=== PATIENT | female | born 1945 | race Caucasian/White ===

== ENCOUNTER 2016-10-22 22:15 | Emergency (ER) | payer MEDICARE, OTHER ==
[2016-10-22] MEDS ORDERED: Sodium Chloride 0.9% 1000 ML 1,000 ML ONE (22:39)
[2016-10-22] MEDS ORDERED: TYLENOL 325 MG PO STA (22:41)
[2016-10-22] MEDS ORDERED: Sodium Chloride 0.9% 1000 ML 1,000 ML IV STA (22:41)
[2016-10-22] MEDS ORDERED: Rocephin 1000 MG INJ IV STA (22:41)
[2016-10-22] MEDS ORDERED: TYLENOL EXTRA STRENGTH 500 MG PO ONE (22:45)
--- NOTE | 2016-10-22 22:45 | ERPHSYRPT ---
- History of Present Illness Time Seen by Provider: 10/22/16 22:43 Source: patient, family Exam Limitations: no limitations Patient Subjective Stated Complaint: pt spouse states that police captain senior he witnessed the patient have difficulty getting up from her chair. states that she was mumbling and had garbled speech. pt reports chills and was shivering this evening. spouse reports giving pt 2 81 mg asa, pt does not recall this event. Triage Nursing Assessment: pt is aox3, arrived per ems, pt resps are easy and nonlabored, skin is flushed and hot to the touch. pulses are strong and equal, lung sounds are clear throughout ant and posterior. Physician History: pt spouse states that police captain senior he witnessed the patient have difficulty getting up from her chair. states that she was mumbling and had garbled speech. pt reports chills and was shivering this evening. spouse reports giving pt 2 81 mg asa, pt does not recall this event. Timing/Duration: today Fever Severity: moderate Fever Therapy LEGAL ADMINISTRATIVE SECRETARY: aspirin Associated Symptoms: confusion, weakness International travel in last 2 weeks: No Allergies/Adverse Reactions: No Known Drug Allergies Allergy (Verified 10/22/16 22:35) Home Medications: Ascorbic Acid 500 mg [Vitamin C 500 MG] 500 mg PO DAILY 07/13/14 [History] Aspirin [Aspirin EC] 81 mg PO DAILY 07/13/14 [History] Calcium Carb & Citrate/Vit D3 [Calcium + Vitamin D3 Caplet] 1 each PO DAILY [History] Folic Acid 1 mg PO DAILY 07/13/14 [History] Liraglutide [Victoza 2-Rod] 1.8 mg SQ DAILY 07/13/14 [History] Metformin HCl 850 mg [Glucophage 850 MG] 850 mg PO BID 07/13/14 [History] Multivitamin W-Minerals/Lutein [Centrum Silver Tablet] 1 each PO DAILY 07/13/14 [History] Niacin 250 mg PO DAILY 07/13/14 [History] [place]-3/Dha/Epa/Fish Oil [Fish Oil Dr 500 mg Softgel] 500 mg PO DAILY 07/13/14 [ History] Rosuvastatin Calcium [Crestor] 10 mg PO DAILY 07/13/14 [History] Thiamine HCl 100 mg [Vitamin B-1 100 mg] 100 mg PO DAILY 07/13/14 [History ] Vitamin E 400 Units [Vitamin E 400 UNIT SOFTGEL] 400 unit PO DAILY [History] Hx Tetanus, Diphtheria Vaccination/Date Given: Yes Hx Influenza Vaccination/Date Given: No Hx Pneumococcal Vaccination/Date Given: No Immunizations Up to Date: Yes - Review of Systems Constitutional: Fever, Chills Eyes: No Symptoms Ears, Nose, & Throat: No Symptoms Respiratory: No Cough, No Dyspnea Cardiac: No Chest Pain, No Edema, No Syncope Abdominal/Gastrointestinal: No Abdominal Pain, No Nausea, No Vomiting, No Diarrhea Genitourinary Symptoms: No Dysuria Musculoskeletal: Back Pain, No Neck Pain Skin: No Rash Neurological: No Dizziness, No Focal Weakness, No Sensory Changes Psychological: No Symptoms Endocrine: No Symptoms All Other Systems: Reviewed and Negative - Past Medical History Pertinent Past Medical History: Yes Neurological History: No Pertinent History ENT History: No Pertinent History Cardiac History: No Pertinent History Respiratory History: No Pertinent History Endocrine Medical History: Diabetes Type II Musculoskeletal History: Arthritis, Other GI Medical History: No Pertinent History History: No Pertinent History Psycho-Social History: No Pertinent History Female Reproductive Disorders: Other Other Medical History: bulging discs - Past Surgical History Past Surgical History: Yes Neuro Surgical History: No Pertinent History Cardiac: No Pertinent History Respiratory: No Pertinent History Gastrointestinal: Appendectomy, Cholecystectomy Genitourinary: No Pertinent History Musculoskeletal: Joint Replacement Female Surgical History: No Pertinent History Other Surgical History: breat biopsy, tumor removed from arm; partial right knee replacement. - Social History Smoking Status: Never smoker Exposure to second hand smoke: No Drug Use: none Patient Lives Alone: No - Nursing Vital Signs Nursing Vital Signs: Initial Vital Signs Temperature 100.3 F Temperature Source Oral Pulse Rate 100 Respiratory Rate 22 Blood Pressure [] 155/65 Pain Intensity 0 - Physical Exam General Appearance: no apparent distress, alert Eye Exam: PERRL/EOMI ENT Exam: normal ENT inspection, No pharyngeal erythema, No tonsillar exudate Neck Exam: supple, full range of motion, No meningismus Respiratory Exam: normal breath sounds, lungs clear, no respiratory distress Cardiovascular/Chest Exam: normal heart sounds, regular rate/rhythm, No murmur, No edema Gastrointestinal/Abdominal Exam: soft, non tender, no distention Extremity Exam: non-tender, normal range of motion, normal inspection, normal capillary refill Neurologic Exam: alert, oriented x 3, cooperative, clinical trial head II-XII nml as tested, normal mood/affect, sensation nml, No motor deficits Skin Exam: normal color, warm, dry, No rash SpO2: 96 Oxygen Delivery: Room Air - Course Nursing assessment & vital signs reviewed: Yes - Radiology Exams Chest X-ray Interpretation: Reviewed by me Ordered Tests: Active Orders 24 hr Category Date Time Status EKG-ER Only STAT Care 10/22/16 22:41 Active IV Insertion STAT Care 10/22/16 22:41 Active CHEST 2 VIEWS (PA AND LAT) Stat Exams 10/22/16 22:42 Taken BLOOD CULTURE Stat Lab 10/22/16 23:05 Received CBC W DIFF Stat Lab 10/22/16 22:55 Completed CMP Stat Lab 10/22/16 22:55 Completed CULTURE,URINE Stat Lab 10/22/16 22:42 Ordered Lactic Acid Stat Lab 10/22/16 22:55 Completed Manual Differential NC Stat Lab 10/22/16 22:55 Completed UA W/ MICROSCOPIC Stat Lab 10/22/16 23:15 Completed Medication Summary Generic Name Dose Route Start Last Admin Trade Name Freq PRN Reason Stop Dose Admin Ceftriaxone Sodium/Dextrose 1 g in 50 mls @ 100 mls/hr 10/22/16 23:33 23:39 Rocephin 1 Gm-D5w 50 Ml Bag IV 10/23/16 00:02 100 mls/hr STAT ONE Administration Discontinued Medications Generic Name Dose Route Start Last Admin Trade Name Freq PRN Reason Stop Dose Admin Acetaminophen 650 mg 10/22/16 22:41 10/22/16 22:53 Tylenol 325 Mg PO 10/22/16 22:42 Not Given STAT STA Acetaminophen 1,000 mg 10/22/16 22:45 10/22/16 22:53 Tylenol Extra Strength 500 Mg PO 10/22/16 22:46 1,000 mg STAT ONE Administration Acetaminophen Confirm 10/22/16 22:50 Tylenol Extra Strength 500 Mg Administered 10/22/16 22:51 Dose 1,000 mg .ROUTE .STK-MED ONE Sodium Chloride Confirm 10/22/16 22:39 Sodium Chloride 0.9% 1000 Ml Administered 10/22/16 22:40 Dose 1,000 mls @ ud .ROUTE .STK-MED ONE Sodium Chloride 1,000 mls @ 999 mls/hr 10/22/16 22:41 10/22/16 22:53 Sodium Chloride 0.9% 1000 Ml IV 10/22/16 23:41 999 mls/hr .Q1H1M STA Administration Ceftriaxone Sodium/Dextrose Confirm 10/22/16 23:35 Rocephin 1 Gm-D5w 50 Ml Bag Administered 10/22/16 23:36 Dose 1 g in 50 mls @ ud IV .STK-MED ONE Lab/Rad Data: Laboratory Result Diagrams 10/22/16 22:55 10/22/16 22:55 Laboratory Results 10/22/16 10/22/16 10/22/16 Range/Units 23:15 22:55 22:55 WBC (4.0-10.5) K/mm3 RBC (4.1-5.4) M/mm3 Hgb (12.0-16.0) gm/dl Hct (35-47) % MCV (78-100) fl MCH (26-32) pg MCHC (32-36) g/dl RDW (11.5-14.0) % Plt Count (150-450) K/mm3 MPV (6-9.5) fl Sodium 138 (136-145) mEq/L Potassium 3.2 L (3.5-5.1) mEq/L Chloride 101 (98-107) mEq/L Carbon Dioxide 24.8 (21-32) mEq/L Anion Gap 15.5 H (5-15) MEQ/L BUN 16 (9-20) mg/dL Creatinine 0.84 (0.55-1.30) mg/dl Estimated GFR > 60 ML/MIN Glucose 160 H (70-110) MG/DL Lactic Acid 1.5 (0.4-2.0) Calcium 8.6 (8.5-10.1) mg/dL Total Bilirubin 1.30 H (0.2-1.0) mg/dL AST 24 (15-37) U/L ALT 25 (12-78) U/L Alkaline Phosphatase 47 (46-116) U/L Serum Total Protein 6.6 (6.4-8.2) gm/dL Albumin 3.4 (3.4-5.0) g/dL Ur Collection Type CLEAN CATCH Urine Color YELLOW (YELLOW) Urine Appearance CLEAR (CLEAR) Urine pH 7.0 (5-6) Ur Specific [place] 1.005 (1.005-1.025) Urine Protein 30 (Negative) Urine Ketones SMALL (NEGATIVE) Urine Blood TRACE NON-HEM (0-5) Kane/ul Urine Nitrite NEGATIVE (NEGATIVE) Urine Bilirubin NEGATIVE (NEGATIVE) Urine Urobilinogen NORMAL (0-1) mg/dL Ur Leukocyte Esterase 1+ (NEGATIVE) Urine Microscopic RBC 2-5 (0-2) /HPF Urine Microscopic WBC 15-25 (0-5) /HPF Ur Epithelial Cells FEW (FEW) /HPF Urine Bacteria FEW (NEGATIVE) /HPF Urine Glucose NEGATIVE (NEGATIVE) mg/dL Specimen Received 10/22/16 2317 10/22/16 Range/Units 22:55 WBC 12.0 H (4.0-10.5) K/mm3 RBC 4.15 (4.1-5.4) M/mm3 Hgb 11.8 L (12.0-16.0) gm/dl Hct 35.6 (35-47) % MCV 85.8 (78-100) fl MCH 28.4 (26-32) pg MCHC 33.1 (32-36) g/dl RDW 13.8 (11.5-14.0) % Plt Count 143 L (150-450) K/mm3 MPV 11.3 H (6-9.5) fl Sodium (136-145) mEq/L Potassium (3.5-5.1) mEq/L Chloride (98-107) mEq/L Carbon Dioxide (21-32) mEq/L Anion Gap (5-15) MEQ/L BUN (9-20) mg/dL Creatinine (0.55-1.30) mg/dl Estimated GFR ML/MIN Glucose (70-110) MG/DL Lactic Acid (0.4-2.0) Calcium (8.5-10.1) mg/dL Total Bilirubin (0.2-1.0) mg/dL AST (15-37) U/L ALT (12-78) U/L Alkaline Phosphatase (46-116) U/L Serum Total Protein (6.4-8.2) gm/dL Albumin (3.4-5.0) g/dL Ur Collection Type Urine Color (YELLOW) Urine Appearance (CLEAR) Urine pH (5-6) Ur Specific [place] (1.005-1.025) Urine Protein (Negative) Urine Ketones (NEGATIVE) Urine Blood (0-5) Kane/ul Urine Nitrite (NEGATIVE) Urine Bilirubin (NEGATIVE) Urine Urobilinogen (0-1) mg/dL Ur Leukocyte Esterase (NEGATIVE) Urine Microscopic RBC (0-2) /HPF Urine Microscopic WBC (0-5) /HPF Ur Epithelial Cells (FEW) /HPF Urine Bacteria (NEGATIVE) /HPF Urine Glucose (NEGATIVE) mg/dL Specimen Received - Progress Progress: improved Counseled pt/family regarding: lab results, diagnosis, need for follow-up, rad results - Departure Time of Disposition: 23:50 Departure Disposition: Home Clinical Impression: UTI (lower urinary tract infection) Condition: Stable Critical Care Time: Yes Critical Care Time(excluding separately billable procedures): 30-74 minutes Referrals: VIDHI LEONG MD [Primary Care Provider] - Instructions: Urinary Tract Infection (UTI) Additional Instructions: URINARY TRACT INFECTION 1. You will need to drink plenty of fluids in order to keep your urinary system flushed. These fluids should mainly consist of water and juices. 2. Take medications as directed. You need to completely finish any antibiotic prescription given. 3. Try to avoid coffee, tea, alcohol, and seasoned foods as they may cause bladder irritation. 4. If signs and symptoms persist after 3-4 days, you will need to follow up with your family physician. 5. Female Patients: A. Avoid intercourse for 3-4 days. B. Empty bladder before and after intercourse to reduce risk of re- infection. C. After emptying bladder, wipe from front to back to reduce the risk of re- infection. Please follow the instructions given to you. Please take your medication as prescribed if given. If symptoms recur or get worse, come back to the emergency room if you cannot reach your primary care physician, or call your primary care physician for an appointment. Again if your symptoms get worse, come back to the emergency room. Thanks for visiting emergency room, and let us take care of you. Prescriptions: Ciprofloxacin [Cipro 500 MG] 500 mg PO BIDAC #20 tablet
[2016-10-22] MEDS ORDERED: TYLENOL EXTRA STRENGTH 500 MG ONE (22:50)
[2016-10-22 23:12] LABS: Mean Cell Volume 85.8 fl (78-100); Mean Corpuscular Hemoglobin 28.4 pg (26-32); Mean Platelet Volume 11.3 fl (6-9.5); Platelet Count 143 K/mm3 (150-450); Red Blood Count 4.15 M/mm3 (4.1-5.4); Red Cell Distribution Width 13.8 % (11.5-14.0)
[2016-10-22] MEDS ORDERED: ROCEPHIN 1 Gm-D5w 50 ml Bag** 1 G/50 ML IVPB IV ONE ×2 (23:33→23:35)
[2016-10-22 23:38] VITALS: O2SAT 96
[2016-10-22 23:38] LABS: Collection Type CLEAN CATCH; Glucose NEGATIVE (NEGATIVE); Leukocyte Esterase 1+ (NEGATIVE)
[2016-10-22 23:39] LABS: Bilirubin NEGATIVE (NEGATIVE); Blood TRACE NON-HEM Ery/ul (0-5); COMPLETE URINE MICROSCOPIC? YES
[2016-10-22 23:40] LABS: Bacteria FEW /HPF (NEGATIVE); Epithelial Cells FEW /HPF (FEW); WBC 15-25 /HPF (0-5)
[2016-10-22 23:43] LABS: ALBUMIN 3.4 g/dL (3.4-5.0); ALKALINE PHOSPHATASE 47 U/L (46-116); ANION GAP 15.5 MEQ/L (5-15); BLOOD UREA NITROGEN 16 mg/dL (9-20); CHLORIDE 101 mEq/L (98-107); Carbon Dioxide 24.8 mEq/L (21-32); Glucose 160 MG/DL (70-110); Potassium 3.2 mEq/L (3.5-5.1); SGOT/AST 24 U/L (15-37); SGPT/ALT 25 U/L (12-78); SODIUM 138 mEq/L (136-145); Total Protein 6.6 gm/dL (6.4-8.2)
[2016-10-23 00:36] LABS: BAND 1 % (0.0-2.0); Platelet Estimate NORMAL (NORMAL); Total Cells Counted 100
[2016-10-23 00:39] VITALS: BP 151/92; PULSE 70
--- NOTE | 2016-10-23 06:40 | XRAY ---
Indication: Fever, chills, and confusion. Comparison: None PA/lateral chest demonstrates normal heart and lungs with incidental scattered calcified granulomas. Bony thorax intact with mild spinal degenerative changes.
== END 2016-10-23 00:39 | disposition home or self-care (01) ==
LOC: ED 22:15
DX: N39.0 Urinary tract infection, site not specified (principal); R41.0 Disorientation, unspecified; R53.1 Weakness; R50.9 Fever, unspecified; E11.9 Type 2 diabetes mellitus without complications; Z79.84 Long term (current) use of oral hypoglycemic drugs; Z79.899 Other long term (current) drug therapy
CPT/HCPCS: 36000; 36415; 71020; 80053; 81000; 83605; 85025; 87040; 87077; 87086; 87186; 93005; 96360; 96365; 99284; J0696; A9270-GY

== ENCOUNTER 2020-02-27 19:18 | Emergency (ER) | payer MEDICARE, OTHER ==
[2020-02-27] MEDS ORDERED: Sodium Chloride 0.9% 1000 ML 1,000 ML IV STA (19:22)
[2020-02-27 19:31] VITALS: O2SAT 97
[2020-02-27] MEDS ORDERED: Sodium Chloride 0.9% 1000 ML 1,000 ML ONE (19:35)
[2020-02-27 19:53] LABS: ALBUMIN 4.2 g/dL (3.5-5.0); ANION GAP 12.1 MEQ/L (5-15); BILIRUBIN,TOTAL 1.4 mg/dL (0.2-1.3); Calcium 9.3 mg/dL (8.4-10.2); Creatinine 1 0.97 mg/dL (0.52-1.04); EST GLOMERULAR FILTRATION RATE 59.3 ML/MIN; MAGNESIUM 1.6 mg/dL (1.6-2.3); Potassium 3.8 mmol/L (3.5-5.1); Total Protein 7.2 g/dL (6.3-8.2)
[2020-02-27 19:57] LABS: Hematocrit 36.2 % (35-47); Hemoglobin 11.9 gm/dl (12.0-16.0); Mean Cell Volume 89.4 fl (78-100); Mean Corpuscular Hemoglobin 29.4 pg (26-32); Mean Corpuscular Hgb Concent. 32.9 g/dl (32-36); Mean Platelet Volume 11.8 fl (7.5-11.0); Platelet Count 138 K/mm3 (150-450); Red Blood Count 4.05 M/mm3 (4.1-5.4); Red Cell Distribution Width 14.4 % (11.5-14.0); White Blood Count 15.4 K/mm3 (4.0-10.5)
[2020-02-27 20:00] LABS: Appearance SLIGHTLY CLOUDY (CLEAR); Bilirubin NEGATIVE (NEGATIVE); Blood NEGATIVE Ery/ul (0-5); Epithelial Cells RARE /HPF (FEW); Glucose 50 mg/dL (NEGATIVE); Ketones TRACE (NEGATIVE); Leukocyte Esterase MODERATE (NEGATIVE); Mucus SLIGHT /HPF (NEGATIVE); Nitrite NEGATIVE (NEGATIVE); Non-Squamous Epithelial Cells RARE /HPF (FEW); Protein,Urine Dip NEGATIVE (Negative); Specific Gravity 1.017 (1.005-1.025); Urobilinogen 2 mg/dL (0-1)
--- NOTE | 2020-02-27 20:33 | ERPHSYRPT ---
- History of Present Illness Source: patient, family, EMS Exam Limitations: no limitations Patient Subjective Stated Complaint: Patient states " I was sitting at the table and before I realized it I was sliding down to the floor and landed on my butt". I started having sharp pain in my lower back". Triage Nursing Assessment: Patient arrived to ER via ambulance. Patient A/O times 4. Patient pleasant. Lungs clear bilateral A/P throughout. Patient denies SOB. Patient denies chest pain. No S/S respiratory distress. + BS times 4 quads. ABD soft round non-distended. Patient denies pain or discomfort upon palpitation. Upon visual inspection to back no bruising or edema noted. Slight redness noted. Cap refill < 3 seconds. 1+ pitting edema noted to bilateral lower extremties. + pedal and radial pulses noted to all extremities. Patient denies losing LOC. Patient stated she did hit head on a piece of furniture that was behind her but denies headache or any pain or discomfort to head/neck. ROM WNL. Physician History: Patient is 74-year-old female with diabetes who presents status post fall. Brought in by ambulance. Patient apparently was sitting at a table but at the edge of her seat and started sliding down off the seat and ended up on the table. On the way down she did hit the back of her head on the chair edge. Denies any dizziness or weakness prior to sliding down. She blames it on having sat too close to the edge of her chair. Ever patient states that she has been feeling dizzy over the last week or 2. Patient denies any chest pain, shortness of breath, URI or GI symptoms. Patient also denies fever. Patient states that she did not lose consciousness. She does mention of having some pain in her lower back and neck. Been states that patient has been on the ground for about an hour before he got there. Patient states that she felt too weak to get up on her own but was fully aware. Occurred: just prior to arrival Reason for Fall: slipped Injuries/Pain Location: head, neck, back Loss of Consciousness: no loss of consciousness Quality: aching Severity of Pain-Max: moderate Severity of Pain-Current: moderate Modifying Factors: Improves With: nothing Allergies/Adverse Reactions: No Known Drug Allergies Allergy (Verified 02/27/20 19:20) Home Medications: Ascorbic Acid 500 mg [Vitamin C 500 MG] 500 mg PO DAILY 07/13/14 [History] Calcium Carb & Citrate/Vit D3 [Calcium + Vitamin D3 Caplet] 1 each PO DAILY 07/13/14 [History] Liraglutide [Victoza 2-Rod] 1.8 mg SQ DAILY 07/13/14 [History] Metformin HCl 850 mg [Glucophage 850 MG] 850 mg PO BID 07/13/14 [History] Multivitamin W-Minerals/Lutein [Centrum Silver Tablet] 1 each PO DAILY 07/13/14 [History] [place]-3/Dha/Epa/Fish Oil [Fish Oil Dr 500 mg Softgel] 500 mg PO DAILY 07/13/14 [History] Rosuvastatin Calcium [Crestor] 10 mg PO DAILY 07/13/14 [History] Gabapentin 300 mg PO TID 02/27/20 [History] Raloxifene HCl 60 mg PO DAILY 02/27/20 [History] Hx Tetanus, Diphtheria Vaccination/Date Given: Yes Hx Influenza Vaccination/Date Given: Yes Hx Pneumococcal Vaccination/Date Given: Yes Immunizations Up to Date: Yes Travel Risk - International Travel Have you traveled outside of the country in past 3 weeks: No - Coronavirus Screening Are you exhibiting any of the following symptoms?: No Close contact with a COVID-19 positive Pt in past 14-21 Days: No - Review of Systems Constitutional: No Fever, No Chills Eyes: No Symptoms Ears, Nose, & Throat: No Symptoms Respiratory: No Cough, No Dyspnea Cardiac: No Chest Pain, No Edema, No Syncope Abdominal/Gastrointestinal: No Abdominal Pain, No Nausea, No Vomiting, No Diarrhea Genitourinary Symptoms: No Dysuria Musculoskeletal: Back Pain, Neck Pain Skin: No Rash Neurological: Dizziness, No Focal Weakness, No Sensory Changes Psychological: No Symptoms Endocrine: No Symptoms All Other Systems: Reviewed and Negative - Past Medical History Pertinent Past Medical History: Yes Neurological History: Peripheral Neuropathy ENT History: No Pertinent History Cardiac History: High Cholesterol, Hypertension Respiratory History: No Pertinent History Endocrine Medical History: Diabetes Type II Musculoskeletal History: Osteoarthritis GI Medical History: No Pertinent History History: No Pertinent History Psycho-Social History: No Pertinent History Female Reproductive Disorders: Other Other Medical History: Hx partial right knee arthroplasty. 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 - Social History Smoking Status: Former smoker Exposure to second hand smoke: No Drug Use: none Patient Lives Alone: Yes - Female History Hx Last Menstrual Period: POST Hx Now: No - Nursing Vital Signs Nursing Vital Signs: Initial Vital Signs Temperature 99.3 F 02/27/20 19:20 Pulse Rate 99 H 02/27/20 19:20 Respiratory Rate 20 02/27/20 19:20 Blood Pressure 162/98 02/27/20 19:20 O2 Sat by Pulse Oximetry 97 02/27/20 19:20 Pain Scale Pain Intensity 8 - [place] Coma Score Best Eye Response ([place]): (4) open spontaneously Best Verbal Response ([place]): (5) oriented Best Motor Response ([place]): (6) obeys commands Ste[place] Total: 15 - Physical Exam General Appearance: no apparent distress, alert Head Injury: no evidence of injury Eye Exam: PERRL/EOMI ENT Exam: airway nml Neck Exam: supple, full range of motion, normal inspection, paraspinous muscle tender, tenderness, No mid-line tenderness Respiratory/Chest Exam: normal breath sounds, No chest tenderness, No respiratory distress Cardiovascular Exam: normal heart sounds, regular rate/rhythm Gastrointestinal Exam: soft, No tenderness, No distention, No guarding, No ecchymosis Back Exam: normal inspection, vertebral tenderness (About L3), muscle spasm Extremity Exam: normal inspection, normal range of motion, pelvis stable, No deformities Neurologic Exam: alert, oriented x 3, cooperative, sensation nml, No motor deficits Skin Exam: normal color, warm, dry SpO2 Interpretation: normal SpO2: 97 - Course Nursing assessment & vital signs reviewed: Yes EKG Interpreted by Me: Sinus Rhythm, NORMAL AXIS, NORMAL QRS - Radiology Exams Chest X-ray Interpretation: Reviewed by me, Negative, No Infiltrates L-Spine X-ray Interpretation: Reviewed by me, Other (DDD, mild scoliosis, no acute fx or sublux.) - CT Exams Head CT Interpretation: Discussed w/radiologist, Tele-radiologist Report, No/Intracranial Hemorrhag Cervical Spine CT Interpretation: Discussed w/radiologist, No Fracture Ordered Tests: Active Orders 24 hr Category Date Time Status EKG-ER Only STAT Care 02/27/20 19:22 Active IV Insertion STAT Care 02/27/20 19:22 Active CERVICAL SPINE WO CONTRAST [CT] Stat Exams 02/27/20 19:24 Taken CHEST 1 VIEW (PORTABLE) Stat Exams 02/27/20 19:22 Taken HEAD WITHOUT CONTRAST [CT] Stat Exams 02/27/20 19:23 Taken LUMBAR LIMITED (2 OR 3 VIEWS) Stat Exams 02/27/20 21:30 Taken CBC W DIFF Stat Lab 02/27/20 19:35 Completed CMP Stat Lab 02/27/20 19:35 Completed CULTURE,URINE Stat Lab 02/27/20 19:49 Received MAGNESIUM Stat Lab 02/27/20 19:35 Completed Manual Differential NC Stat Lab 02/27/20 19:35 Completed TROPONIN Q3H Lab 02/27/20 19:35 Completed TROPONIN Q3H Lab 02/27/20 22:30 Ordered TROPONIN Q3H Lab 02/28/20 01:30 Ordered TROPONIN Q3H Lab 02/28/20 04:30 Ordered TROPONIN Q3H Lab 02/28/20 07:30 Ordered UA W/RFX UR CULTURE Stat Lab 02/27/20 19:49 Completed Medication Summary Discontinued Medications Generic Name Dose Route Start Last Admin Trade Name Freq PRN Reason Stop Dose Admin Sodium Chloride 1,000 mls @ 999 mls/hr 02/27/20 19:22 02/27/20 19:38 Sodium Chloride 0.9% 1000 Ml IV 02/27/20 20:22 999 mls/hr .Q1H1M STA Administration Sodium Chloride Confirm 02/27/20 19:35 Sodium Chloride 0.9% 1000 Ml Administered 02/27/20 19:36 Dose 1,000 mls @ ud .ROUTE .STK-MED ONE Lab/Rad Data: Laboratory Result Diagrams 02/27/20 19:35 02/27/20 19:35 Laboratory Results 02/27/20 02/27/20 02/27/20 Range/Units 19:49 19:35 19:35 WBC (4.0-10.5) K/mm3 RBC (4.1-5.4) M/mm3 Hgb (12.0-16.0) gm/dl Hct (35-47) % MCV (78-100) fl MCH (26-32) pg MCHC (32-36) g/dl RDW (11.5-14.0) % Plt Count (150-450) K/mm3 MPV (7.5-11.0) fl Sodium 133 L (137-145) mmol/L Potassium 3.8 (3.5-5.1) mmol/L Chloride 98 (98-107) mmol/L Carbon Dioxide 27 (22-30) mmol/L Anion Gap 12.1 (5-15) MEQ/L BUN 13 (7-17) mg/dL Creatinine 0.97 (0.52-1.04) mg/dL Estimated GFR 59.3 ML/MIN Glucose 214 H (74-106) mg/dL Calcium 9.3 (8.4-10.2) mg/dL Magnesium 1.6 (1.6-2.3) mg/dL Total Bilirubin 1.40 H (0.2-1.3) mg/dL AST 27 (14-36) U/L ALT 23 (0-35) U/L Alkaline Phosphatase 57 (38-126) U/L Troponin I < 0.012 (0.000-0.034) ng/mL Serum Total Protein 7.2 (6.3-8.2) g/dL Albumin 4.2 (3.5-5.0) g/dL Urine Color YELLOW (YELLOW) Urine Appearance SLIGHTLY CLOUDY (CLEAR) Urine pH 5.0 (5-6) Ur Specific [place] 1.017 (1.005-1.025) Urine Protein NEGATIVE (Negative) Urine Ketones TRACE (NEGATIVE) Urine Blood NEGATIVE (0-5) Kane/ul Urine Nitrite NEGATIVE (NEGATIVE) Urine Bilirubin NEGATIVE (NEGATIVE) Urine Urobilinogen 2 (0-1) mg/dL Ur Leukocyte Esterase MODERATE (NEGATIVE) Urine WBC (Auto) 11-15 (0-5) /HPF Urine RBC (Auto) 3-5 (0-2) /HPF U Epithel Cells (Auto) RARE (FEW) /HPF Urine Bacteria (Auto) NONE (NEGATIVE) /HPF U Non-Squamous Epi Cells RARE (FEW) /HPF Urine Mucus (Auto) SLIGHT (NEGATIVE) /HPF Urine Culture Reflexed YES (NO) Urine Glucose 50 (NEGATIVE) mg/dL 02/27/20 Range/Units 19:35 WBC 15.4 H (4.0-10.5) K/mm3 RBC 4.05 L (4.1-5.4) M/mm3 Hgb 11.9 L (12.0-16.0) gm/dl Hct 36.2 (35-47) % MCV 89.4 (78-100) fl MCH 29.4 (26-32) pg MCHC 32.9 (32-36) g/dl RDW 14.4 H (11.5-14.0) % Plt Count 138 L (150-450) K/mm3 MPV 11.8 H (7.5-11.0) fl Sodium (137-145) mmol/L Potassium (3.5-5.1) mmol/L Chloride (98-107) mmol/L Carbon Dioxide (22-30) mmol/L Anion Gap (5-15) MEQ/L BUN (7-17) mg/dL Creatinine (0.52-1.04) mg/dL Estimated GFR ML/MIN Glucose (74-106) mg/dL Calcium (8.4-10.2) mg/dL Magnesium (1.6-2.3) mg/dL Total Bilirubin (0.2-1.3) mg/dL AST (14-36) U/L ALT (0-35) U/L Alkaline Phosphatase (38-126) U/L Troponin I (0.000-0.034) ng/mL Serum Total Protein (6.3-8.2) g/dL Albumin (3.5-5.0) g/dL Urine Color (YELLOW) Urine Appearance (CLEAR) Urine pH (5-6) Ur Specific [place] (1.005-1.025) Urine Protein (Negative) Urine Ketones (NEGATIVE) Urine Blood (0-5) Kane/ul Urine Nitrite (NEGATIVE) Urine Bilirubin (NEGATIVE) Urine Urobilinogen (0-1) mg/dL Ur Leukocyte Esterase (NEGATIVE) Urine WBC (Auto) (0-5) /HPF Urine RBC (Auto) (0-2) /HPF U Epithel Cells (Auto) (FEW) /HPF Urine Bacteria (Auto) (NEGATIVE) /HPF U Non-Squamous Epi Cells (FEW) /HPF Urine Mucus (Auto) (NEGATIVE) /HPF Urine Culture Reflexed (NO) Urine Glucose (NEGATIVE) mg/dL - Progress Progress: improved Progress Note: 02/27/20 22:02 Given the patient had a fall, we will get scans of her head and neck given her trauma there. Will get chest x-ray, EKG and lumbar spine. Also given her recent dizziness, will do basic work-up. She is currently finishing out her Macrobid for UTI so we will check a urine to make sure it has cleared. Patient's chest x-ray, EKG, lumbar spine and CT scan of head and neck were all within normal limits. Patient did show on her labs some leukocytosis of 15.4 and blood glucose of 214. Looks like patient has been gradually getting weaker over the last couple of months. Her weakness is probably why she had trouble getting up today after she had she slid down the chair. Labs and radiology findings were discussed with and patient. I advise following up with Dr. Giordano for further evaluation of her weakness. This may just be from deconditioning. We will provide some relief for her back pain and we will switch her antibiotics to Keflex. Counseled pt/family regarding: lab results, diagnosis, need for follow-up, rad results - Departure Departure Disposition: Home Clinical Impression: UTI (lower urinary tract infection), Lumbar contusion, Closed head injury Condition: Stable Critical Care Time: No Referrals: LADONNA GIORDANO [Primary Care Provider] - Instructions: Contusion (DC), Closed Head Injury (DC) Additional Instructions: Monitor symptoms closely. Take medication as prescribed. Duration. Rest. Follow-up with Dr. Giordano in 1 to 2 days for recheck. Return to ER if worse. Prescriptions: Cephalexin Mh 500 mg [Keflex 500 mg] 500 mg PO TID #21 capsule
[2020-02-27] MEDS ORDERED: KEFLEX 500 MG PO ONE (22:01)
[2020-02-27] MEDS ORDERED: TORAdol 30 mg Injection IM ONE (22:01)
[2020-02-27] MEDS ORDERED: TORAdol 30 mg Injection ONE (22:05)
[2020-02-27] MEDS ORDERED: KEFLEX 500 MG ONE (22:05)
[2020-02-27 22:26] VITALS: BP 152/71; PULSE 86
[2020-02-27 23:31] LABS: Basophil 1 % (0.0-1.0); Lymphocytes 9 % (24-44); Monocyte 3 % (0.0-12.0); Neutrophils 87 % (36.0-66.0); Platelet Estimate NORMAL (NORMAL); Total Cells Counted 100
--- NOTE | 2020-02-28 08:43 | XRAY ---
Indication: Head injury following fall. Multiple contiguous axial images obtained through the head without contrast. Comparison: None Age-appropriate global atrophy. No acute intracranial hemorrhage, abnormal extra-axial fluid collection, or mass effect. Fourth ventricle is midline without hydrocephalus. Summers-white matter differentiation preserved. Bony calvarium intact. Visualized paranasal sinuses and mastoid air cells are clear. Impression: No acute intracranial abnormalities.
--- NOTE | 2020-02-28 08:45 | XRAY ---
Indication: Neck pain following fall. Multiple contiguous axial images obtained through the cervical spine. Sagittal and coronal reformatted images obtained. Comparison: None Axial images negative for acute fracture, suspicious bony lesions, or spinal canal stenosis. C4 vertebral body demonstrates 5 mm hemangioma. There is mild/moderate C3-C7 degenerative endplate spurring. Sagittal and coronal reformatted images demonstrates lordotic straightening, positional versus paraspinal spasm. C4-C7 degenerative disc space loss. No acute compression fracture, subluxation, or jumped facet. Normal appearing craniocervical junction. Visualized noncontrasted soft tissues including lung apices are unremarkable. Impression: 1. Cervical lordotic straightening, positional versus paraspinal spasm. Negative for acute fracture/subluxation. 2. Multilevel degenerative changes.
--- NOTE | 2020-02-28 08:55 | XRAY ---
Indication: Status post fall. Comparison: October 22, 2016. Portable chest again demonstrates normal heart and lungs with incidental calcified granulomas. Bony thorax intact again with mild degenerative changes. No new/acute findings.
--- NOTE | 2020-02-28 08:57 | XRAY ---
Indication: Pain following fall. Comparison: None 3 view lumbar spine demonstrates 5 lumbar vertebral segments with mild osteopenia, moderate/advanced multilevel degenerative spondylosis, moderate dextrorotoscoliosis centered at L2, and mild scattered vascular calcifications. No other bony, articular, or soft tissue abnormalities.
== END 2020-02-27 22:27 | disposition home or self-care (01) ==
LOC: ED 19:18
DX: S30.0XXA Contusion of lower back and pelvis, initial encounter (principal); S09.90XA Unspecified injury of head, initial encounter; W07.XXXA Fall from chair, initial encounter; M54.2 Cervicalgia; M54.5 Low back pain; N39.0 Urinary tract infection, site not specified; R42 Dizziness and giddiness; E11.9 Type 2 diabetes mellitus without complications; I10 Essential (primary) hypertension; E78.5 Hyperlipidemia, unspecified; Z79.899 Other long term (current) drug therapy
CPT/HCPCS: 36000; 36415; 70450; 71045; 72100; 72125; 80053; 81001; 83735; 84484; 85025; 87086; 93005; 96360; 96372; 99285; J1885; A9270-GY

== ENCOUNTER 2020-02-28 12:20 | Emergency (ER) | payer MEDICARE, OTHER ==
[2020-02-28] MEDS ORDERED: TYLENOL 325 MG PO STA (12:50)
[2020-02-28] MEDS ORDERED: Sodium Chloride 0.9% 1000 ML 1,000 ML IV STA (12:50)
[2020-02-28] MEDS ORDERED: Sodium Chloride 0.9% 1000 ML 1,000 ML ONE (12:57)
[2020-02-28] MEDS ORDERED: TYLENOL 325 MG ONE (12:57)
[2020-02-28 13:02] LABS: Absolute Neutrophil Ct (ANC) 14.44 (1.4-6.9); BASOPHIL % 0.1 % (0.0-0.4); Basophil (Absolute #) 0.02 (0-0.4); Eosinophil % 2.3 % (0.00-5.0); Eosinophil (Absolute #) 0.37 (0-0.5); Hematocrit 34.4 % (35-47); Hemoglobin 11.5 gm/dl (12.0-16.0); Lymphocyte (Absolute #) 0.45 (1.0-4.6); Lymphocytes % 2.8 % (24.0-44.0); Mean Cell Volume 89.1 fl (78-100); Mean Corpuscular Hemoglobin 29.8 pg (26-32); Mean Corpuscular Hgb Concent. 33.4 g/dl (32-36); Mean Platelet Volume 11.5 fl (7.5-11.0); Monocyte (Absolute #) 1.03 (0.0-1.3); Monocytes % 6.3 % (0.0-12.0); Neutrophil % 88.5 % (36.0-66.0); Platelet Count 133 K/mm3 (150-450); Red Blood Count 3.86 M/mm3 (4.1-5.4); Red Cell Distribution Width 14.3 % (11.5-14.0); White Blood Count 16.3 K/mm3 (4.0-10.5)
[2020-02-28 13:14] LABS: ALBUMIN 3.9 g/dL (3.5-5.0); ANION GAP 11.1 MEQ/L (5-15); BILIRUBIN,TOTAL 2.1 mg/dL (0.2-1.3); Calcium 9.1 mg/dL (8.4-10.2); Creatinine 1 0.99 mg/dL (0.52-1.04); Potassium 3.9 mmol/L (3.5-5.1); Total Protein 6.9 g/dL (6.3-8.2)
[2020-02-28] MEDS ORDERED: ROCEPHIN 1 Gm-D5w 50 ml Bag** 1 G/50 ML IVPB IV STA (13:14)
[2020-02-28] MEDS ORDERED: ROCEPHIN 1 Gm-D5w 50 ml Bag** 1 G/50 ML IVPB IV ONE (13:19)
[2020-02-28 14:24] VITALS: BP 124/60; PULSE 93; O2SAT 94
[2020-02-28 14:31] LABS: INFLUENZA A NEGATIVE (NEGATIVE); INFLUENZA B NEGATIVE (NEGATIVE)
[2020-02-28 14:34] LABS: Slide Review 1 YES
--- NOTE | 2020-02-28 14:38 | ERPHSYRPT ---
- History of Present Illness Time Seen by Provider: 02/28/20 12:30 Source: patient Exam Limitations: no limitations Patient Subjective Stated Complaint: Pt states "I am here again. I was here last night for the same thing. I have a fever and chills." Triage Nursing Assessment: PT presented alert and oriented X 3, skin pwd Pt ambulates with an upright steady gait, able to speak in clear full sentences pt in no apparent respiratory distress. Pt was asked if she took anything for her fever and she stated no. Physician History: Patient is a 74-year-old female presents to our ED with complaints of subjective fevers and chills. Patient was in our ED last night. Patient was diagnosed with a urinary tract infection. She received a dose of Keflex and was discharged with a prescription. Patient has not filled her prescription. Patient is here because she was not feeling well. No chest pain. No shortness of breath. No nausea or vomiting. No diarrhea. No rash. No numbness tingling or weakness. No headache. No neck pain. No photophobia. Symptoms are mild to moderate in intensity. No specific worsening improving factors. Patient voices no other complaints or concerns at this time. Patient has not taken any [id number] antipyretics or analgesics and is currently afebrile Timing/Duration: yesterday Severity: moderate Modifying Factors: Improves With: nothing Associated Symptoms: No nausea, No vomiting, No abdominal pain, No shortness of breath, No heartburn, No diaphoresis, No cough, No chills, No chest pain, No fever, No headaches, No loss of appetite, No malaise, No syncope, No seizure, No weakness Allergies/Adverse Reactions: No Known Drug Allergies Allergy (Verified 02/27/20 19:20) Home Medications: Ascorbic Acid 500 mg [Vitamin C 500 MG] 500 mg PO DAILY 07/13/14 [History] Calcium Carb & Citrate/Vit D3 [Calcium + Vitamin D3 Caplet] 1 each PO DAILY 07/13/14 [History] Liraglutide [Victoza 2-Rod] 1.8 mg SQ DAILY 07/13/14 [History] Metformin HCl 850 mg [Glucophage 850 MG] 850 mg PO BID 07/13/14 [History] Multivitamin W-Minerals/Lutein [Centrum Silver Tablet] 1 each PO DAILY 07/13/14 [History] Morrow-3/Dha/Epa/Fish Oil [Fish Oil Dr 500 mg Softgel] 500 mg PO DAILY 07/13/14 [History] Rosuvastatin Calcium [Crestor] 10 mg PO DAILY 07/13/14 [History] Gabapentin 300 mg PO TID 02/27/20 [History] Raloxifene HCl 60 mg PO DAILY 02/27/20 [History] Hx Tetanus, Diphtheria Vaccination/Date Given: Yes Hx Influenza Vaccination/Date Given: Yes Hx Pneumococcal Vaccination/Date Given: Yes Immunizations Up to Date: Yes Travel Risk - International Travel Have you traveled outside of the country in past 3 weeks: No - Coronavirus Screening Are you exhibiting any of the following symptoms?: Yes Symptoms: Fever Close contact with a COVID-19 positive Pt in past 14-21 Days: No - Review of Systems Constitutional: No Symptoms, No Fever, No Chills Eyes: No Symptoms Ears, Nose, & Throat: No Symptoms Respiratory: No Symptoms, No Cough, No Dyspnea Cardiac: No Symptoms, No Chest Pain, No Edema, No Syncope Abdominal/Gastrointestinal: No Symptoms, No Abdominal Pain, No Nausea, No Vomiting, No Diarrhea Genitourinary Symptoms: No Symptoms, No Dysuria Musculoskeletal: No Symptoms, No Back Pain, No Neck Pain Skin: No Symptoms, No Rash Neurological: No Symptoms, No Dizziness, No Focal Weakness, No Sensory Changes Psychological: No Symptoms Endocrine: No Symptoms Hematologic/Lymphatic: No Symptoms Immunological/Allergic: No Symptoms All Other Systems: Reviewed and Negative - Past Medical History Pertinent Past Medical History: Yes Neurological History: Peripheral Neuropathy ENT History: No Pertinent History Cardiac History: High Cholesterol, Hypertension Respiratory History: No Pertinent History Endocrine Medical History: Diabetes Type II Musculoskeletal History: Osteoarthritis GI Medical History: No Pertinent History History: No Pertinent History Psycho-Social History: No Pertinent History Female Reproductive Disorders: Other Other Medical History: Hx partial right knee arthroplasty. 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 - Social History Smoking Status: Former smoker Exposure to second hand smoke: No Drug Use: none Patient Lives Alone: Yes - Nursing Vital Signs Nursing Vital Signs: Initial Vital Signs Temperature 99.7 F 02/28/20 12:21 Pulse Rate 105 H 02/28/20 12:21 Respiratory Rate 20 02/28/20 12:21 Blood Pressure 169/79 02/28/20 12:21 O2 Sat by Pulse Oximetry 95 02/28/20 12:21 Pain Scale Pain Intensity 2 - Physical Exam General Appearance: no apparent distress, alert Eye Exam: PERRL/EOMI, eyes nml inspection Ears, Nose, Throat Exam: normal ENT inspection, TMs normal, pharynx normal, moist mucous membranes Neck Exam: normal inspection, non-tender, supple, full range of motion Respiratory Exam: normal breath sounds, lungs clear, No respiratory distress Cardiovascular Exam: regular rate/rhythm, normal heart sounds, normal peripheral pulses Gastrointestinal/Abdomen Exam: soft, normal bowel sounds, other (NO CVA tenderness.), No tenderness, No mass Back Exam: normal inspection, normal range of motion, No CVA tenderness, No vertebral tenderness Extremity Exam: normal inspection, normal range of motion, pelvis stable Neurologic Exam: alert, oriented x 3, cooperative, normal mood/affect, nml c erebellar function, nml station & gait, sensation nml, No motor deficits Skin Exam: normal color, warm, dry, No rash Lymphatic Exam: No adenopathy SpO2: 94 - Course Nursing assessment & vital signs reviewed: Yes EKG Interpreted by Me: RATE (96), Sinus Rhythm, NORMAL AXIS, NORMAL INTERVALS Ordered Tests: Active Orders 24 hr Category Date Time Status Natural Resource Economist STAT Care 02/28/20 12:52 Active EKG-ER Only STAT Care 02/28/20 12:50 Active IV Insertion STAT Care 02/28/20 12:50 Active Pulse Oximetry (ED) STAT Care 02/28/20 12:50 Active BLOOD CULTURE Stat Lab 02/28/20 13:30 Received CBC W DIFF Stat Lab 02/28/20 12:45 Completed CMP Stat Lab 02/28/20 12:45 Completed INFLUENZA A+B MARII Stat Lab 02/28/20 Completed Lactic Acid Stat Lab 02/28/20 12:50 Completed Medication Summary Discontinued Medications Generic Name Dose Route Start Last Admin Trade Name Freq PRN Reason Stop Dose Admin Acetaminophen 975 mg 02/28/20 12:50 02/28/20 12:58 Tylenol 325 Mg PO 02/28/20 12:51 975 mg STAT STA Administration Acetaminophen Confirm 02/28/20 12:57 Tylenol 325 Mg Administered 02/28/20 12:58 Dose 975 mg .ROUTE .STK-MED ONE Sodium Chloride 1,000 mls @ 999 mls/hr 02/28/20 12:50 02/28/20 14:06 Sodium Chloride 0.9% 1000 Ml IV 02/28/20 13:50 Infused .Q1H1M STA Infusion Sodium Chloride Confirm 02/28/20 12:57 Sodium Chloride 0.9% 1000 Ml Administered 02/28/20 12:58 Dose 1,000 mls @ ud .ROUTE .STK-MED ONE Ceftriaxone Sodium/Dextrose 1 g in 50 mls @ 100 mls/hr 02/28/20 13:14 02/28/20 13:56 Rocephin 1 Gm-D5w 50 Ml Bag IV 02/28/20 13:43 Infused STAT STA Infusion Ceftriaxone Sodium/Dextrose Confirm 02/28/20 13:19 Rocephin 1 Gm-D5w 50 Ml Bag Administered 02/28/20 13:20 Dose 1 g in 50 mls @ ud IV .STK-MED ONE Lab/Rad Data: Laboratory Result Diagrams 02/28/20 12:45 02/28/20 12:45 Laboratory Results 02/28/20 02/28/20 02/28/20 Range/Units Unknown 12:50 12:45 WBC (4.0-10.5) K/mm3 RBC (4.1-5.4) M/mm3 Hgb (12.0-16.0) gm/dl Hct (35-47) % MCV (78-100) fl MCH (26-32) pg MCHC (32-36) g/dl RDW (11.5-14.0) % Plt Count (150-450) K/mm3 MPV (7.5-11.0) fl Gran % (36.0-66.0) % Eos # (Auto) (0-0.5) Absolute Lymphs (auto) (1.0-4.6) Absolute Monos (auto) (0.0-1.3) Lymphocytes % (24.0-44.0) % Monocytes % (0.0-12.0) % Eosinophils % (0.00-5.0) % Basophils % (0.0-0.4) % Absolute Granulocytes (1.4-6.9) Basophils # (0-0.4) Sodium 132 L (137-145) mmol/L Potassium 3.9 (3.5-5.1) mmol/L Chloride 97 L (98-107) mmol/L Carbon Dioxide 27 (22-30) mmol/L Anion Gap 11.1 (5-15) MEQ/L BUN 14 (7-17) mg/dL Creatinine 0.99 (0.52-1.04) mg/dL Estimated GFR 58.0 ML/MIN Glucose 190 H (74-106) mg/dL Lactic Acid 2.3 H (0.4-2.0) Calcium 9.1 (8.4-10.2) mg/dL Total Bilirubin 2.10 H (0.2-1.3) mg/dL AST 28 (14-36) U/L ALT 21 (0-35) U/L Alkaline Phosphatase 49 (38-126) U/L Serum Total Protein 6.9 (6.3-8.2) g/dL Albumin 3.9 (3.5-5.0) g/dL Influenza Type A Ag NEGATIVE (NEGATIVE) Influenza Type B Ag NEGATIVE (NEGATIVE) 02/28/20 Range/Units 12:45 WBC 16.3 H (4.0-10.5) K/mm3 RBC 3.86 L (4.1-5.4) M/mm3 Hgb 11.5 L (12.0-16.0) gm/dl Hct 34.4 L (35-47) % MCV 89.1 (78-100) fl MCH 29.8 (26-32) pg MCHC 33.4 (32-36) g/dl RDW 14.3 H (11.5-14.0) % Plt Count 133 L (150-450) K/mm3 MPV 11.5 H (7.5-11.0) fl Gran % 88.5 H (36.0-66.0) % Eos # (Auto) 0.37 (0-0.5) Absolute Lymphs (auto) 0.45 L (1.0-4.6) Absolute Monos (auto) 1.03 (0.0-1.3) Lymphocytes % 2.8 L (24.0-44.0) % Monocytes % 6.3 (0.0-12.0) % Eosinophils % 2.3 (0.00-5.0) % Basophils % 0.1 (0.0-0.4) % Absolute Granulocytes 14.44 H (1.4-6.9) Basophils # 0.02 (0-0.4) Sodium (137-145) mmol/L Potassium (3.5-5.1) mmol/L Chloride (98-107) mmol/L Carbon Dioxide (22-30) mmol/L Anion Gap (5-15) MEQ/L BUN (7-17) mg/dL Creatinine (0.52-1.04) mg/dL Estimated GFR ML/MIN Glucose (74-106) mg/dL Lactic Acid (0.4-2.0) Calcium (8.4-10.2) mg/dL Total Bilirubin (0.2-1.3) mg/dL AST (14-36) U/L ALT (0-35) U/L Alkaline Phosphatase (38-126) U/L Serum Total Protein (6.3-8.2) g/dL Albumin (3.5-5.0) g/dL Influenza Type A Ag (NEGATIVE) Influenza Type B Ag (NEGATIVE) - Progress Progress: improved Progress Note: 02/28/20 14:43 Patient reassessed. Patient states I feel so much better after the fluids. Patient received a dose of Rocephin in our ED. Patient influenza negative. EKG normal sinus rhythm. Initial lactic acid was slightly elevated to 2.3. Repeat was within normal range 1.9. Patient will picking crew supervisor her antibiotic prescription today. Patient agrees to follow-up with her primary care doctor within 48 hours for reevaluation. Patient voices no other complaints at this time. Patient requests discharge. 02/28/20 14:44 Counseled pt/family regarding: lab results, diagnosis, need for follow-up - Departure Departure Disposition: Home Clinical Impression: UTI (urinary tract infection), UTI (lower urinary tract infection), Leukocytosis Condition: Stable Critical Care Time: No Referrals: LADONNA CONTRERAS [Primary Care Provider] - Additional Instructions: Discharge/Care Plan GLYNN MARTINEZ was seen on 02/28/20 in the Emergency Room. The patient was counseled regarding Diagnosis,Lab results, Imaging studies, need for follow up and when to return to the Emergency Room. Prescriptions given: Discharge Note I have spoken with the patient and/or caregivers. I have explained the patient's condition, diagnosis and treatment plan based on the information available to me at this time. I have answered the patient's and/or caregiver's questions and addressed any concerns. The patient and/or caregivers have as good understanding of the patient's diagnosis, condition and treatment plan as can be expected at this point. The vital signs have been stable. The patient's condition is stable and appropriate for discharge from the emergency department. The patient will pursue further outpatient evaluation with the primary care physician or other designated or consulting physician as outlined in the discharge instructions. The patient and/or caregivers are agreeable to this plan of care and follow-up instructions have been explained in detail. The patient and/or caregivers have received these instruction. The patient/and or caregivers are aware that any significant change in condition or worsening of symptoms should prompt an immediate return to this or the closest emergency department or call 911.
== END 2020-02-28 14:44 | disposition home or self-care (01) ==
LOC: ED 12:20
DX: N39.0 Urinary tract infection, site not specified (principal); R50.9 Fever, unspecified; D72.829 Elevated white blood cell count, unspecified; E78.5 Hyperlipidemia, unspecified; I10 Essential (primary) hypertension; E11.9 Type 2 diabetes mellitus without complications; Z79.899 Other long term (current) drug therapy
CPT/HCPCS: 36000; 36415; 80053; 83605; 85025; 86769; 87040; 87400; 93005; 93041; 94760; 96360; 96365; 99284; J0696; A9270-GY

== ENCOUNTER 2024-03-17 10:44 | Emergency (ER) | payer MEDICARE, OTHER ==
--- NOTE | 2024-03-17 13:35 | ERPHSYRPT ---
- History of Present Illness Time Seen by Provider: 03/17/24 13:34 Source: patient Exam Limitations: no limitations Physician History: This is an overweight 78-year-old white female patient of nurse practitioner Deng and arrives by private vehicle accompanied by her significant other with bilateral lower extremity swelling over the last 2 weeks and right lower extrem ity swelling that is worse than the left and associated pain behind her right knee. Patient has no history of clotting or bleeding disorders. She is not on any anticoagulation therapy and she has no history of trauma. Patient has a history of diabetes, hyperlipidemia, hypertension, and osteoporosis. Patient denies chest pain. Patient denies shortness of breath. Patient denies cough Occurred: other (Signs of bilateral lower extremity swelling over the last 2 weeks. Right lower extremity worse this morning and associated pain in the popliteal fossa) Quality: aching Severity of Pain-Max: mild (Moderate) Severity of Pain-Current: mild (Moderate) Lower Extremities Pain: leg: right, other: bilateral (Bilateral lower extremity swelling) Modifying Factors: Improves With: movement (Right lower leg) Allergies/Adverse Reactions: cephalexin [From [employer]] Allergy (Verified 03/17/24 13:27) Rash Home Medications: Ascorbic Acid 500 mg [Vitamin C 500 MG] 500 mg PO DAILY 07/13/14 [History] Metformin HCl 850 mg [Glucophage 850 MG] 850 mg PO BID 07/13/14 [History] Multivitamin W-Minerals/Lutein [Centrum Silver Tablet] 1 each PO DAILY 07/13/14 [History] Rosuvastatin Calcium [Crestor] 10 mg PO HS 07/13/14 [History] Raloxifene HCl 60 mg PO DAILY 02/27/20 [History] Glimepiride 2 mg [Amaryl 2 MG] 2 mg PO BID 09/09/23 [History] Hydrochlorothiazide 25 mg [hydroDIURIL 25 MG] 25 mg PO DAILY 09/09/23 [History] Irbesartan 150 mg [Avapro 150 MG] 300 mg PO DAILY 09/09/23 [History] Non-Formulary Drug [Non-Formulary Bulk Item] 3 each PO BID 09/09/23 [History] Semaglutide [Ozempic] 1 mg SQ WEEKLY 09/09/23 [History] Hx Tetanus, Diphtheria Vaccination/Date Given: Yes Hx Influenza Vaccination/Date Given: Yes Hx Pneumococcal Vaccination/Date Given: Yes Travel Risk - International Travel Have you traveled outside of the country in past 3 weeks: No - Emerging Infectious Disease Are you exhibiting symptoms associated with any current EIDs: No - Past Medical History Pertinent Past Medical History: Yes Neurological History: Peripheral Neuropathy ENT History: No Pertinent History Cardiac History: High Cholesterol, Hypertension Respiratory History: No Pertinent History Endocrine Medical History: Diabetes Type II Musculoskeletal History: Osteoarthritis GI Medical History: No Pertinent History History: No Pertinent History Psycho-Social History: No Pertinent History Female Reproductive Disorders: Other Other Medical History: Hx partial right knee arthroplasty. 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 - Social History Smoking Status: Former smoker Exposure to second hand smoke: No Drug Use: none Patient Lives Alone: Yes - Social Determinants of Health Will the patient participate in the screening: Yes Do you worry about a steady place to live?: No In the past 12 months,have you had to go without utilities?: No Transportation Issues: No Has anyone in your support network made you feel unsafe?: No Have you or anyone in your house had to go without enough: No - Nursing Vital Signs Nursing Vital Signs: Initial Vital Signs Temperature 96.9 F 03/17/24 13:30 Pulse Rate 81 03/17/24 13:30 Respiratory Rate 20 03/17/24 13:30 Blood Pressure 201/65 03/17/24 13:30 O2 Sat by Pulse Oximetry 99 03/17/24 13:30 Pain Scale Pain Intensity 0 - Course Nursing assessment & vital signs reviewed: Yes Ordered Tests: Active Orders 24 hr Category Date Time Status VENOUS BILATERAL EXTREMITY [US] Stat Exams 03/17/24 14:17 Taken CMP Stat Lab 03/17/24 16:00 Completed NT PRO BNPII Stat Lab 03/17/24 16:00 Completed Lab/Rad Data: Laboratory Result Diagrams 03/17/24 16:00 Laboratory Results 03/17/24 Range/Units 16:00 Sodium 135 (135-145) mmol/L Potassium 3.7 (3.5-5.1) mmol/L Chloride 99 (98-107) mmol/L Carbon Dioxide 27 (22-30) mmol/L Anion Gap 12.3 (5-15) MEQ/L BUN 13 (7-17) mg/dL Creatinine 0.93 (0.52-1.04) mg/dL Estimated GFR 62.1 ML/MIN Glucose 85 (74-106) mg/dL Calcium 9.4 (8.4-10.2) mg/dL Total Bilirubin 1.20 (0.2-1.3) mg/dL AST 29 (14-36) U/L ALT 21 (0-35) U/L Alkaline Phosphatase 45 (38-126) U/L NT-Pro-B Natriuret Pep 392 (<300) pg/mL Serum Total Protein 6.4 (6.3-8.2) g/dL Albumin 3.8 (3.5-5.0) g/dL - Progress Progress: unchanged Progress Note: 03/17/24 14:32 My medical decision making and the assignment of moderate complexity to this patient's medical issue today is based on review of the patient's past medical history, review the patient's medication list, reviewed patient drug allergies, history present illness and physical findings on examination. The workup in this patient includes CMP, BNP and bilateral lower extremity venous Doppler. Differential diagnosis includes but is not limited to CHF, DVT, abnormal renal function 03/17/24 16:41 I interpreted the patient's laboratory data results. Based on the laboratory data results, the patient has no acute, emergent medical issue. The acute care occupational therapist/technologist reported to me that the bilateral lower extremity venous Dopplers are negative for DVT. Counseled pt/family regarding: lab results, diagnosis, rad results Medical Desision Making - Independent Historian Additional History obtained from: Spouse - Diagnostic Testing Radiological Interpretation: Other (Supervisor Pipe Manufacture/technologist provided me with the preliminary report) - Risk of complications Low Risk: Low risk of morbidity from additional dx testing or treatment - Departure Departure Disposition: Home Clinical Impression: Bilateral lower extremity edema Condition: Stable Critical Care Time: No Referrals: MISA STAPLES NP [Primary Care Provider] - Follow up/PCP as directed
[2024-03-17 13:39] VITALS: TEMP 96.9; O2SAT 99
[2024-03-17 16:23] VITALS: BP 166/64; PULSE 72; RESP 18
[2024-03-17 16:33] LABS: ALBUMIN 3.8 g/dL (3.5-5.0); ANION GAP 12.3 MEQ/L (5-15); BILIRUBIN,TOTAL 1.2 mg/dL (0.2-1.3); Calcium 9.4 mg/dL (8.4-10.2); Creatinine 1 0.93 mg/dL (0.52-1.04); EST GLOMERULAR FILTRATION RATE 62.1 ML/MIN; Potassium 3.7 mmol/L (3.5-5.1); Total Protein 6.4 g/dL (6.3-8.2)
--- NOTE | 2024-03-17 20:48 | XRAY ---
Indication: Bilateral leg swelling. Right leg pain. Two-dimensional sonogram and color Doppler imaging major venous left and right leg performed. Comparison: None No thrombus seen in the examined deep venous vessels left and right leg including greater saphenous vein. Veins demonstrate normal compressibility. Venous waveforms are normal with and without augmentation. Impression: Left and right legs negative for DVT. Comment: Preliminary report was given.
== END 2024-03-17 17:01 | disposition home or self-care (01) ==
LOC: ED 10:44
DX: R60.0 Localized edema (principal); M79.604 Pain in right leg; E11.42 Type 2 diabetes mellitus with diabetic polyneuropathy; E78.5 Hyperlipidemia, unspecified; I10 Essential (primary) hypertension; Z79.84 Long term (current) use of oral hypoglycemic drugs; Z79.85 Long-term (current) use of injectable non-insulin antidiabetic drugs; Z79.899 Other long term (current) drug therapy
CPT/HCPCS: 36415; 80053; 83880; 93970; 99283; 99284